=== PATIENT | female | born 2000 | race African-American/Black ===

== ENCOUNTER 2020-05-26 13:05 | Emergency (ER) | payer MEDICAID ==
[~2020-05-26] VITALS: Ht 154.9 cm; Wt 65.9 kg
[2020-05-26 13:30] VITALS: Ht 154.9 cm; Wt 65.9 kg
[2020-05-26 14:04] LABS: BASOPHILS 0.2 % (0-2); HEMOGLOBIN 12.2 g/dL (12-16); IMMATURE GRANULOCYTES 0.5 % (0-5); LYMPHOCYTES 33.2 % (15-50); MCH 29.1 pg (26.0-34.0); MCV 88.3 fL (80.0-100.0); MEAN PLATELET VOLUME 8.1 fL (7.4-10.4); MONOCYTES 11.7 % (2-11); NEUTROPHILS 53.4 % (40-80); PLATELET COUNT 240 10x3/uL (130-400); RBC 4.19 10x6/uL (4.00-5.40); WBC 5.9 10x3/uL (4.8-10.8)
[2020-05-26 14:07] LABS: BILIRUBIN NEGATIVE (NEGATIVE); KETONE NEGATIVE (NEGATIVE); NITRITE NEGATIVE (NEGATIVE); UROBILINOGEN NORMAL (NORMAL)
[2020-05-26 14:11] LABS: ANION GAP 10.7 mmol/L (8-16); CARBON DIOXIDE 27.4 mmol/L (21.0-32.0); CREATININE - SERUM 1.1 mg/dL (0.6-1.3); POTASSIUM - SERUM 4.1 mmol/L (3.5-5.1)
[2020-05-26 14:13] LABS: UDS - AMPHET NEGATIVE QUAL (NEGATIVE); UDS - BARB NEGATIVE QUAL (NEGATIVE); UDS - BENZO NEGATIVE QUAL (NEGATIVE); UDS - COCAINE NEGATIVE QUAL (NEGATIVE); UDS - OPIATE NEGATIVE QUAL (NEGATIVE); UDS - PCP NEGATIVE QUAL (NEGATIVE); UDS - THC NEGATIVE QUAL (NEGATIVE)
[2020-05-26 14:17] LABS: ALBUMIN 3.9 g/dL (3.4-5.0); BILIRUBIN - TOTAL 0.29 mg/dL (0.2-1.3); HCG SERUM NEGATIVE (NEGATIVE)
--- NOTE | 2020-05-26 14:23 | NUR ---
PT HAS NOT HAD ANY SUICIDE ATTEMPTS BUT HAS HAD THOUGHTS OF SUICIDE WITHOUT A PLAN. PT ADMITS TO HAVING HOMICIDAL THOUGHTS TOWARDS THE STAFF AT [facility] WHERE SHE LIVES. PT IS ON ZYPREXA, XOLOFT, AND TRAZADON. PT HAS A HX OF AUDITORY HALLUCINATIONS. PT WAS PREVIOUSLY AT [facility] BEFORE GOING TO [facility]. PT IS ORIGINALLY FROM [place] AND WANTS A "RIDE BACK". DR. WEISS TO GET INFORMATION FROM [facility]. PT IS A LOW RISK PER ASSESSMENT. RESOURCES GIVEN AT DISCHARGE.
[2020-05-26 18:14] VITALS: BP 129/73
== END 2020-05-26 18:15 ==
LOC: D.ER 13:05
DX: F20.9 Schizophrenia, unspecified (principal); R45.851 Suicidal ideations; R45.850 Homicidal ideations